=== PATIENT | female | born 1945 | race Caucasian/White ===

== ENCOUNTER 2018-01-25 08:22 | Outpatient (CLI) ==
[2013-11-23 22:04] VITALS: BMI 36.9
== END 2018-01-25 08:42 | disposition short-term general hospital (02) ==
LOC: AMBL 08:22
PROVIDERS: ATTEND Emergency Medicine
DX: R07.9 Chest pain, unspecified (principal); R06.9 Unspecified abnormalities of breathing

== ENCOUNTER 2018-10-26 08:29 | Outpatient (CLI) ==
[2013-11-23 22:04] VITALS: BMI 36.9
--- NOTE | 2018-10-26 09:51 | CT ---
EXAM: CT of the chest with contrast History: Follow-up lung nodules. Comparison: Chest CT 11/23/2013 Technique: Multiplanar CT images through the thorax were obtained following administration of IV con trast Findings: Heart is borderline enlarged. No pericardial effusion. Great vessels are unremarkable. No axillary lymphadenopathy. No pathologically enlarged mediastinal or hilar lymph nodes. Small lef t pleural effusion and trace right pleural effusion. No pneumothorax. Scattered areas of subsegment al atelectasis. No suspicious lung masses or lung nodules. 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 Within the visualized upper abdomen, nodular cirrhotic liver. Partially visualized small left renal cyst. Osteopenia and degenerative changes of the spine. Impression: 1. Borderline cardiomegaly without evidence for pulmonary edema. 2. Small left pleural effusion and trace right pleural effusion. 3. No evidence for pneumonia. 4. No suspicious lung masses or lung nodules. 5. Healing lesion of the left posterior 4th rib. 6. Cirrhotic architecture of the liver
== END 2018-10-26 08:30 | disposition home or self-care (01) ==
LOC: RAD 08:29
PROVIDERS: ATTEND Family Medicine
DX: R63.4 Abnormal weight loss (principal); R91.1 Solitary pulmonary nodule

== ENCOUNTER 2018-10-30 09:07 | Outpatient (CLI) ==
[2013-11-23 22:04] VITALS: BMI 36.9
--- NOTE | 2018-10-30 09:45 | DI ---
EXAM: LEFT ELBOW HISTORY: Elbow pain FINDINGS / IMPRESSION: Left elbow two-view. There is no fracture or dislocation. Joints proper wi thin normal limits. No joint effusion is seen. There is mild bony spurring/enthesopathy of the post erior olecranon process.
== END 2018-10-30 09:08 | disposition home or self-care (01) ==
LOC: RAD 09:07
PROVIDERS: ATTEND Family Medicine
DX: M25.522 Pain in left elbow (principal)